=== PATIENT | male | born 2000 | race Two or more races ===

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

== ENCOUNTER 2021-02-19 00:42 | Emergency (ER) | payer SELFPAY ==
[~2021-02-19] VITALS: Ht 177.8 cm; Wt 70.0 kg
[2021-02-19 00:50] VITALS: BP 125/77
[2021-02-19] MEDS ORDERED: TETRACAINE 0.5% OPHTH SOLUTION 4ML BOTTLE. OD ONE (01:00)
[2021-02-19] MEDS ORDERED: FLUORESCEIN OPHTH TEST STRIP. OD ONE (01:00)
[2021-02-19] MEDS ORDERED: CIPROFLOXACIN 0.3% OPHTH SOLUTION 5ML BOTTLE. OD ONE (01:45)
--- NOTE | 2021-02-19 01:49 | ED.ADGEN ---
Past Medical History Past Medical History: No Pertinent History Past Surgical History: No Surgical History Smoking Status: Never Smoker Alcohol Use: None Drug Use: None General Adult EDM: Chief Complaint: EYE PROBLEMS HPI: HPI: Patient is a 20 year oldixp-yuvo-son male coming in for right eye pain due to foreign body. Patient states that he works in [employer] but is unsure what got into his eye. He thinks it was some of the dust. Denies any vision changes or discharge. Does not wear contact lenses. Last tetanus shot about 6 years ago. Review of Systems: Review of Systems: All other systems within normal limits except for as noted in the HPI Current Medications: Current Medications Medications (Trade) Dose Ordered Sig/Kuldeep Start Time Stop Time Status Last Admin Dose Admin Ciprofloxacin (Ciloxan Ophth) 1 drop 1X ONCE 02/19/21 01:45 02/19/21 01:46 DC Fluorescein Sodium (Ful-Mabel) 1 strip 1X ONCE 02/19/21 01:00 02/19/21 01:01 DC 02/19/21 01:31 1 STRIP Tetracaine HCl (Tetracaine) 1 drop 1X ONCE 02/19/21 01:00 02/19/21 01:01 DC 02/19/21 01:31 1 DROP Allergies: Allergies: Allergies Coded Allergies Type Severity Reaction Last Updated Verified No Known Drug Allergies 05/23/18 No Physical Exam: PE: Constitutional: Well developed, well nourished, no acute distress, non-toxic appearance. [] HENT: Normocephalic, atraumatic, bilateral external ears normal, nose normal. [] Eyes: PERRLA, right conjunctiva injected, left normal, no discharge. Corneal foreign body at 6 o'clock position Neck: No rigidity, supple, no stridor. [] Cardiovascular: Regular rate and rhythm, brisk cap refill [] Lungs & Thorax: Non labored symmetric respirations, no tachypnea or respiratory distress [] Abdomen: Soft, nondistended. Skin: Warm, dry, no erythema, no rash. [] Back: Unremarkable Extremities: No deformities, range of motion grossly intact, no lower extremity edema [] Neurologic: Alert and oriented X 3, no focal deficits noted. [] Psychologic: Affect normal, judgement normal, mood normal. [] Current Patient Data: Vital Signs: Vital Signs Date Time Temp Pulse Resp B/P (MAP) Pulse Ox O2 Delivery O2 Flow Rate FiO2 02/19/21 00:50 98.0 82 16 125/77 (93) 98 Room Air 98.0 EKG: EKG: [] Heart Score: C/O Chest Pain: No Risk Factors: Risk Factors: DM, Current or recent (<one month) smoker, HTN, HLP, family history of CAD, obesity. Risk Scores: Score 0 - 3: 2.5% MACE over next 6 weeks - Discharge Home Score 4 - 6: 20.3% MACE over next 6 weeks - Admit for Clinical Observation Score 7 - 10: 72.7% MACE over next 6 weeks - Early Invasive Strategies Radiology/Procedures: Radiology/Procedures: Foreign body removal from right eye with cotton Q-tip applicator after anesthesia with tetracaine. Patient's I then reviewed with fluorescein with uptake in area without any identification of residual foreign body, no Dodie sign. No abrasions or scratches [] Course & Med Decision Making: Course & Med Decision Making Patient given Cipro eyedrops emergency department sent with bottle with instructions to use. Dragon Disclaimer: Dragon Disclaimer: This electronic medical record was generated, in whole or in part, using a voice recognition dictation system. Departure Departure Impression: Primary Impression: Foreign body of right cornea Disposition: HOME / SELF CARE / HOMELESS Condition: STABLE Referrals: NO PCP (PCP) SEAN KRISHNA MD Patient Instructions: Eye - Corneal Foreign Body Additional Instructions: Ciprofloxacin eyedrops: 2 drops in right eye every 6 hours for 5 days JOHANNA SCHWARTZ MD Feb 19, 2021 01:49
== END 2021-02-19 02:40 | disposition home or self-care (01) ==
LOC: ER 00:42
DX: T15.01XA Foreign body in cornea, right eye, initial encounter (principal); X58.XXXA Exposure to other specified factors, initial encounter; Y93.89 Activity, other specified; Y92.89 Other specified places as the place of occurrence of the external cause; Y99.8 Other external cause status
CPT/HCPCS: 65205; 99284